=== PATIENT | female | born 1960 | race Caucasian/White ===

== ENCOUNTER 2017-08-09 12:56 | Emergency (ER) | payer BC ==
[~2017-08-09] VITALS: Ht 165.1 cm; Wt 74.0 kg
[~2017-08-09 12:56] MED LIST: ASCA500 PO; BUTA1CAP17; CALC-214 PO; HYDR-5688 PO; LEVO-14 PO; PHN/25 PO; SM350 PO; SPIR50TA2 PO; SUMA20SP; SUMA50TA15 PO; SUMA6KIT INJ; VALA500T39 PO; [UNRECOGNIZED DRUG - CODE] TOP
[2017-08-09 13:09] VITALS: TEMP 36.9; Ht 165.1 cm; Wt 74.0 kg
[2017-08-09] MEDS ORDERED: PROCHLORPERAZINE 5 MG/ML 2 ML VIAL IV STA (13:27)
[2017-08-09] MEDS ORDERED: SODIUM CHLORIDE 0.9% 1000ML 1,000 ML IV STA (13:27)
[2017-08-09] MEDS ORDERED: DiphenhydrAMINE HCL 50 MG/ML VIAL IV STA (13:27)
[2017-08-09] MEDS ORDERED: KETOROLAC TROMETHAMINE 30 MG/ML VIAL IV STA (13:27)
[2017-08-09] MEDS ORDERED: IMTIN5 (14:16)
[2017-08-09] MEDS ORDERED: METO50TA7 PO (14:17)
--- NOTE | 2017-08-09 14:24 | EMERGENCY ROOM VISIT NOTE ---
History Report prepared by Leidyibosmel: Mateo King Under the Supervision of: Dr. Akil Givens D.O. First contact with patient: 13:16 Chief Complaint: HEADACHE Stated Complaint: MIGRAINE, HEADACHE FOR 4 DAYS History of Present Illness The patient is a 56 year old female who presents to the Emergency Room with complaints of a waxing and waning headache beginning four days ago. She has a history of migraines and states that her current headache feels like a typical migraine. She states that her migraines do not usually last this long. The patient denies any recent cough, sore throat, or cold. She denies any recent trauma. Source of History: patient Onset: Four days ago Position: head Timing: waxes/wanes Associated Symptoms: No sorethroat, No cough Review of Systems See HPI for pertinent positives & negatives. A total of 10 systems reviewed and were otherwise negative. Past Medical & Surgical Medical Problems: (1) Atrial Fibrillation (2) Cervicalgia (3) Headache (4) Heart palpitations (5) Migraine (6) Status migrainosus Surgical Problems: (1) History of radiofrequency ablation procedure for cardiac arrhythmia Family History No pertinent family history stated. Social History Smoking Status: Never Smoker Drug Use: none Marital Status: Housing Status: lives with significant other Occupation Status: employed Current/Historical Medications Scheduled Estradiol & Norethindrone Acet (Combipatch), 1 PATCH TOP q4 days Metoprolol Succ (Toprol Xl) (Toprol-Xl), 50 MG PO DAILY Spironolactone (Aldactone), 25 MG PO DAILY Sumatriptan Succinate (Imitrex), 100 MG PO PRN Sumatriptan Succinate (Imitrex Nasal [place]), 1 SPRAY NA UD Valacyclovir Hcl (Valtrex), 500 MG PO prn Scheduled PRN Pfyshqzpux-Cveikmusgoajz-Lcyib (Fioricet), 1-2 CAP Q4H PRN for Headache Carisoprodol (Carisoprodol), 350 MG PO QPM PRN for SPASMS Hydrocodone/Acetaminophen 5MG/325MG ([place] 5MG/325MG), 1 TABLET PO DAILY PRN for Pain Promethazine HCl (Promethazine HCl), 25 MG PO DAILY PRN for Nausea Allergies Coded Allergies: Bacitracin (Unverified Allergy, Mild, 08/09/17) Erythromycin (Verified Allergy, Mild, SHORTNESS OF BREATH, 08/09/17) Macrolides (Unverified Allergy, Mild, 08/09/17) Polymyxin B (Unverified Allergy, Mild, 08/09/17) Uncoded Allergies: EMYCIN (Allergy, Unknown, 12/14/02) Physical Exam Vital Signs Date Time Temp Pulse Resp B/P (MAP) Pulse Ox O2 Delivery O2 Flow Rate FiO2 08/09/17 13:09 36.9 65 18 126/85 100 Room Air Physical Exam CONSTITUTIONAL/VITAL SIGNS: Reviewed / noted above. GENERAL: Non-toxic in appearance. INTEGUMENTARY: Warm, dry, and [place]. HEAD: Normocephalic. EYES: without scleral icterus or trauma. ENT/OROPHARYNX: clear and moist. LYMPHADENOPATHY/NECK: Is supple without lymphadenopathy or meningismus. RESPIRATORY: Lungs clear and equal. CARDIOVASCULAR: Regular rate and rhythm. GI/ABDOMEN: Soft and nontender. No organomegaly or pulsatile mass. No rebound or guarding. Normal bowel sounds. EXTREMITIES: Warm and well perfused. BACK: No CVA tenderness. NEUROLOGICAL: Intact without focal deficits. PSYCHIATRIC: normal affect. MUSCULOSKELETAL: Normally developed with good muscle tone. Medical Decision & Procedures Medications Administered Medications (Trade) Dose Ordered Sig/Leigh Route Start Time Stop Time Status Last Admin Dose Admin Ketorolac Tromethamine (Toradol Inj) 30 mg NOW STAT IV 08/09/17 13:27 08/09/17 13:30 DC 08/09/17 13:50 30 MG Sodium Chloride 1,000 ml @ 999 mls/hr Q1H1M STAT IV 08/09/17 13:27 08/09/17 14:27 08/09/17 13:49 999 MLS/HR Prochlorperazine Edisylate (Compazine Inj) 10 mg NOW STAT IV 08/09/17 13:27 08/09/17 13:30 DC 08/09/17 13:49 10 MG Diphenhydramine HCl (Benadryl Inj) 25 mg NOW STAT IV 08/09/17 13:27 08/09/17 13:30 DC 08/09/17 13:49 25 MG ED Course 1321: Previous medical records were reviewed. The patient was evaluated in room A11A. A complete history and physical examination was performed. 1327: Ordered Benadryl Inj 25 mg IV, Compazine Inj 10 mg IV, Sodium Chloride 1000 ml @ 999 mls/hr IV, Toradol Inj 30 mg IV. 1415: On reevaluation, the patient is resting comfortably. I discussed the results and findings with the patient. She verbalized agreement of the treatment plan. The patient was discharged home. Medical Decision Differential includes: Acute intracranial bleed, trauma, meningitis, encephalitis, increased intracranial pressure, mass or mass effect, facial or dental infection, temporal arteritis, CVA, TIA, acute hypertensive emergency, sinusitis, carbon monoxide exposure. This is a 56-year-old female who presents to the ED with a chief complaint of migraine headache. The patient states that she developed mid migraine on . It is on the left side and associated with some nausea. The patient states that similar previous migraines. The patient denies any trauma or recent illness. She denies any new symptoms. She was treated with IV fluids, IV Toradol, IV Benadryl and IV Compazine. She received this in the past that and it works well for her. She prefers to go home after the medication. She was starting to get better. She was felt to be stable for discharge. Medication Reconcilliation Current Medication List: was personally reviewed by me Blood Pressure Screening Patient's blood pressure: Normal blood pressure Blood pressure disposition: Did not require urgent referral Impression Primary Impression: Migraine Scribe Attestation The scribe's documentation has been prepared under my direction and personally reviewed by me in its entirety. I confirm that the note above accurately reflects all work, treatment, procedures, and medical decision making performed by me. Departure Information Dispostion Home / Self-Care Referrals Abiodun Rivera MD (PCP) Patient Instructions My [facility] Additional Instructions Follow-up with your doctor for further care and evaluation in 1-2 days if symptoms persist. Return to the emergency department for worsening or new symptoms or any concerns. You have been examined and treated today on an emergency basis only. This is not a substitute for, or an effort to provide, complete comprehensive medical care. It is impossible to recognize and treat all injuries or illnesses in a single emergency department visit. It is therefore important that you follow up closely with your doctor. Call as soon as possible for an appointment.
[2017-08-09 15:04] VITALS: BP 120/82; PULSE 66; O2SAT 100
== END 2017-08-09 15:05 | disposition home or self-care (01) ==
LOC: C.EDB 12:57 → C.EDA 15:05
DX: G43.909 Migraine, unspecified, not intractable, without status migrainosus (principal); Z79.899 Other long term (current) drug therapy; I48.91 Unspecified atrial fibrillation

== ENCOUNTER → 2017-10-11 | Outpatient (CLI) | payer BC ==
[~2017-10-11] MED LIST changes: -ASCA500 PO; -CALC-214 PO; +ESTR1DIS TOP; +IMTIN5; -LEVO-14 PO; +METO50TA7 PO; -SUMA20SP; -SUMA6KIT INJ; -[UNRECOGNIZED DRUG - CODE] TOP
--- NOTE | 2017-10-12 07:48 | MAMMOGRAPHY REPORT ---
BILATERAL DIGITAL SCREENING MAMMOGRAM TOMOSYNTHESIS WITH CAD: 10/11/2017 CLINICAL HISTORY: Routine screening. Patient has no complaints. TECHNIQUE: Breast tomosynthesis in addition to standard 2D mammography was performed. Current study was also evaluated with a Computer Aided Detection (CAD) system. COMPARISON: Comparison is made to exams dated: 10/09/2016 mammogram, 04/15/2015 mammogram, 10/22/2014 mammogram, 04/19/2014 aspiration, 04/16/2014 ultrasound, and 04/16/2014 mammogram - [facility]. BREAST COMPOSITION: There are scattered areas of fibroglandular density in both breasts. FINDINGS: The parenchymal pattern is unchanged. No developing mass, architectural distortion or clus ter of suspicious microcalcifications is seen in either breast. IMPRESSION: ACR BI-RADS CATEGORY 2: BENIGN There is no mammographic evidence of malignancy. A 1 year screening mammogram is recommended. The pa tient will receive written notification of the results. Approximately 10% of breast cancers are not detected with mammography. A negative mammographic report should not delay biopsy if a clinically suggestive mass is present. Tianna Coley M.D. ay/:10/11/2017 13:31:54 House Painting Instructor: Siena HOOD(Natanael)(M), [facility] letter sent: Normal 1/2 BI-RADS Code: ACR BI-RADS Category 2: Benign
== END | disposition home or self-care (01) ==
LOC: C.MAMM 12:40
PROVIDERS: ATTEND Internal Medicine
DX: Z12.31 Encounter for screening mammogram for malignant neoplasm of breast (principal)

== ENCOUNTER → 2017-11-12 | Outpatient (CLI) | payer BC, OTHER | END | disposition home or self-care (01) | LOC: C.PATHSPEC 11:13 | PROVIDERS: ATTEND Obstetrics & Gynecology | DX: N89.1 Moderate vaginal dysplasia (principal); N84.1 Polyp of cervix uteri ==

== ENCOUNTER → 2017-11-12 | Outpatient (CLI) | payer BC, OTHER | END | disposition home or self-care (01) | LOC: C.PAPS 11:42 | PROVIDERS: ATTEND Obstetrics & Gynecology | DX: Z01.419 Encounter for gynecological examination (general) (routine) without abnormal findings (principal) ==

== ENCOUNTER 2022-04-14 01:06 | Inpatient (IN) ==
[2022-04-14] MEDS ORDERED: ALBUT/IPRATROP 3MG/0.5MG NEB 3 ML VIAL NEB STA ×2 (01:37→04:16)
[2022-04-14] MEDS ORDERED: ACETAMINOPHEN 500 MG TAB PO STA (01:37)
[2022-04-14] MEDS ORDERED: dexAMETHasone**PF** 10 MG/ML VIAL IV ONE (01:37)
[2022-04-14 02:27] LABS: Basophils # (auto) 0.03 K/uL (0-0.2); Basophils % (auto) 0.5 %; Eosinophils # (auto) 0.47 K/uL (0-0.5); Eosinophils % (auto) 7.6 %; Hematocrit (blood only) 38.6 % (37-47); Immature Granulocytes # (auto) 0.02 K/uL (0.00-0.02); Immature Granulocytes % (auto) 0.3 %; Lymphocytes # (auto) 1.73 K/uL (1.2-3.4); Lymphocytes % (auto) 27.8 %; Mean Corpuscular Hemoglobin 32.9 pg (25-34); Mean Corpuscular Hgb Conc 33.7 g/dL (32-36); Mean Corpuscular Volume 97.7 fL (80-100); Mean Platelet Volume 8.7 fL (7.4-10.4); Monocytes # (auto) 0.48 K/uL (0.11-0.59); Monocytes % (auto) 7.7 %; Neutrophils # (auto) 3.49 K/uL (1.4-6.5); Neutrophils % (auto) 56.1 %; Platelet Count 238 K/uL (130-400); RDW Coefficient of Variation 13.4 % (11.5-14.5); Red Blood Count 3.95 M/uL (4.2-5.4); White Blood Count 6.22 K/uL (4.8-10.8)
[2022-04-14 02:32] LABS: D Dimer 250 ug/L FEU (0-500); Prothrombin Time 10.3 Seconds (9.0-12.0)
[2022-04-14 02:45] LABS: Albumin Globulin Ratio 1.8 (0.9-2); BUN Creatinine Ratio 9.9 (10-20); Bilirubin,Total 0.3 mg/dl (0.2-1.0); Calcium 8.6 mg/dl (8.5-10.1); Creatinine Clr Calc Pharmacy 66.7 ml/min; Est GFR (African American) 78.4 ml/min; Est GFR (Non-African American) 67.6 ml/min; Globulin 2.2 gm/dl (2.5-4.0); Potassium 3.9 mmol/L (3.5-5.1); Total Protein 6.2 gm/dl (6.0-8.3)
[2022-04-14 02:46] LABS: Troponin I High Sensitivity 3.9 pg/ml (0-14)
[2022-04-14] MEDS ORDERED: BENZONATATE 100 MG CAPSULE PO ONE (04:16)
--- NOTE | 2022-04-14 07:06 | XRay Report ---
XR chest 1V portable CLINICAL HISTORY: SOB TECHNIQUE: Single frontal radiograph of the chest was obtained. Comparison: Comparison is made to chest radiograph 12/21/2014 FINDINGS: No lines and tubes are seen. The cardiomediastinal silhouette is normal. A tiny focus of airspace [place] in the right lower lobe. No evidence of pleural effusion or pneumothorax. IMPRESSION: Tiny focus of airspace opacities in the right lower lobe may represent aspiration, atelectasis, and/o r pneumonia. ACT 112: Negative or not required by law. Electronically signed by: Hermilo Knight M.D. 04/14/2022 7:04 AM
[2022-04-14 07:28] LABS: Influenza A virus by PCR Negative (Neg); Influenza B virus by PCR Negative (Neg); RSV by PCR Negative (Neg)
[2022-04-14 07:30] LABS: SARS CoV2 RNA(COVID-19) InHosp POSITIVE (Negative)
--- NOTE | 2022-04-14 10:03 | Emergency Department Note ---
Impression & Plan COVID-19, Hypoxia, Shortness of breath ED Provider Note CHIEF COMPLAINT: Respiratory difficulties HISTORY OF PRESENT ILLNESS: Kathleen Little is a 61 year old female with history of asthma, paroxysmal a-fib and SVT s/p ablation, migraines among others listed below to the Emergency Department for evaluation of increased respiratory difficulties which have become progressively worse since earlier yesterday afternoon. The patient states that she initially developed a sore throat 5 days prior and then took a home test for COVID19 on 04/11/2022 which was positive. Since then, she states that she has had a cough with chest tightness and wheezing which then became much worse yesterday afternoon. She did attempt to use her albuterol and Advair inhalers with little improvement of her symptoms. She did take a Tessalon Perle last evening which helped her cough a little bit, however, as she has had increased shortness of breath, she presents to the ED for further evaluation this evening. The patient describes her shortness of breath to feel as if she is not getting enough air. She denies having dyspnea. She otherwise denies having abdominal pain, nausea, vomiting, diarrhea or uri nary symptoms. The patient was recently around her family who tested positive for COVID19 as well. She is fully vaccinated and boosted for COVID19. REVIEW OF SYSTEMS: 10 systems were reviewed and were negative unless otherwise stated in HPI as above PHYSICAL EXAM: VITALS: Vitals are noted on the nurse's note and reviewed by myself. Intermittently hypoxic at 88% on room air, additional vital signs stable General: Resting in bed, no acute distress HEENT: Normocephalic, atraumatic, PERRL, EOMI, TMs clear bilaterally, no nasal discharge, mucous membranes moist, erythema to the posterior oropharynx, no edema or exudates, airway remains patent Neck: Supple, mild bilateral lymphadenopathy, no significant tenderness to palpation, ROM intact without pain Resp: Good inspiratory effort on room air, lung sounds clear bilaterally without wheezing, rales or rhonchi. Mild tenderness to palpation of the anterior chest wall CV: Regular rate and rhythm, normal S1-S2, peripheral pulses palpated Back: No CVA or paraspinal muscular tenderness Abd: Soft, nondistended, nontender MSK: Moving all extremities without apparent pain or difficulty Integumentary: Warm, dry, no appreciable rash Neuro: Awake, alert and oriented x 3, interacting and answering questions appropriately Differential diagnosis includes viral syndrome, bacterial infection, otitis, pharyngitis, COVID-19, pneumonia, influenza, bronchitis, meningitis, allergic reaction, seasonal allergies, as well as others were entertained EMERGENCY DEPARTMENT COURSE: Physical exam and history were performed. Nursing triage notes, EMR, and medication list were personally reviewed. Patient appears to have increased respiratory difficulties which have become progressively worse since earlier yesterday afternoon. She did take a home test for COVID19 on 04/11/2022 which was positive. Additional history as described above. Continuous nurse monitoring: Order was placed for continuous nurse monitoring. Patient was placed on the nurse monitoring. Patient was noted to be in normal sinus rhythm at an initial rate of 76 bpm. EKG was obtained and showed normal sinus rhythm at 73 bpm. Nonspecific T wave abnormality, does not appear to be consistent with acute ischemic change. No ectopy. When compared to study from 12/21/2014, nonspecific T wave abnormality no longer evident in anterolateral leads. The patient was offered medications. IV access was established. She was given dexamethasone 10 mg IV, acetaminophen 1000 mg p.o., DuoNeb breathing treatments x2 and Tessalon Perles 200 mg throughout her emergency department course. Labs are obtained and reviewed by myself as below. Of note, no concern for leukocytosis with a WBC of 6.22. No concern for anemia with hemoglobin 13.0. Coagulation studies WNL. D-dimer not elevated at 250. Electrolytes WNL. Renal indices stable. LFTs nondiagnostic. COVID19 test was positive. Chest x-ray was obtained and reviewed by radiologist and myself as below. This did show a tiny focus of airspace opacities in the right lower lobe, likely consistent with COVID-pneumonia. The patient was reevaluated several times throughout her emergency department course. I did discuss the results of the above findings with her at bedside. She was not feeling significantly improved after receiving the medications as above and her oxygen saturations continued to dip down to 88% on room air, though this did intermittently improve to about 93%. She was placed on 2 L supplemental O2 via NC. For these reasons, I do feel that she would benefit from continued management in the hospital. The patient did agree with this. I did contact Dr. Haji of the [facility] hospitalist group who agreed to evaluate the patient for further management. The patient verbalized her understanding and agreement with the treatment plan as above. The chart was completed utilizing [employer] Speech Voice Recognition Software. Grammatical errors, random word insertions, pronoun errors, and incomplete sentences are an occasional consequence of this system due to software limitations, ambient noise, and hardware issues. Any formal questions or concerns about the content, text, or information contained within the body of this dictation should be directly addressed to the provider for clarification. Past Med/Surg History Medical History Atrial complex, premature Chronic migraine with aura Microscopic colitis Migraine Palpitations Paroxysmal A-fib PSVT (paroxysmal supraventricular tachycardia) Status migrainosus Surgical History History of cardiac radiofrequency ablation History of inguinal hernia repair History of pilonidal cyst resection History of tonsillectomy and adenoidectomy No pertinent past surgical history Family History (Updated 09/05/20 @ 16:05 by Jennifer Lopez) Aunt Breast cancer Paternal Family/Other Breast cancer great aunt Mother Dyslipidemia Denies family history of Ovarian cancer Colorectal cancer Social History Smoking Status: Never smoker Preferred Language: Tuvaluan Feels Safe at Home: Yes Allergies Allergies Allergy/AdvReac Type Severity Reaction Status Date / Time erythromycin base Allergy Severe SHORTNESS Verified 04/14/22 01:52 OF BREATH [id number] Allergy Severe SYSTEMIC Verified 04/14/22 01:52 [From Raf] HIVES Macrolide Antibiotics Allergy Severe SHORTNESS Verified 04/14/22 01:52 OF BREATH bacitracin Allergy Intermediate SKIN Verified 04/14/22 01:52 IRRITATION polymyxin B Allergy Intermediate SKIN Verified 04/14/22 01:52 IRRITATION ragweed pollen Allergy Intermediate NASAL Verified 04/14/22 01:52 CONGESTION Home Meds Home Medications Medication Instructions Recorded Confirmed metoclopramide HCl 10 mg tablet 10 mg PO Q12H PRN 02/12/21 04/14/22 mexiletine 250 mg capsule 250 mg PO BID 02/12/21 04/14/22 nabumetone 500 mg tablet 500 mg PO BID PRN 02/12/21 04/14/22 metoprolol succinate 25 mg 25 mg PO DAILY tab 03/03/22 04/14/22 tablet,extended release 24 hr sertraline 100 mg tablet 100 mg PO DAILY tab 03/03/22 04/14/22 Previous Rx's Medication Instructions Recorded sumatriptan 20 mg/actuation nasal 20 mg INTRANASAL Q2H PRN #12 ea 05/20/20 spray eletriptan 40 mg tablet 40 mg PO DIRECTED PRN 90 Days 12/16/20 #27 tab carisoprodol 350 mg tablet 350 - 700 mg PO DAILY PRN 90 Days 01/09/22 #180 tab estradiol 0.0375 mg/24 hr 1 patch TRANSDERMAL 2XWK #24 ea 02/26/22 semiweekly transdermal patch (Vivelle-Dot) progesterone micronized 100 mg 100 mg PO DAILY 90 Days #90 cap 02/26/22 capsule (Prometrium) Results & Data (ED) Vital Signs Vital Signs - 24 hr 04/14/22 01:10 04/14/22 01:21 04/14/22 01:32 Temperature 36.8 C Temperature Source Temporal Artery Scan Pulse Rate 76 74 Pulse Rate [Apical] Pulse Rate from SpO2 Sensor Pulse Rhythm [Apical] Respiratory Rate 18 15 Respiratory Effort / Characteristics Non-Labored Short of Breath SOB on Exertion Respiratory Depth Normal Respiratory Pattern Blood Pressure 136/86 Blood Pressure [Right Arm] Blood Pressure Mean 102 Blood Pressure Mean [Right Arm] Pulse Oximetry 98 97 97 Oxygen Delivery Method Room Air Room Air Room Air Sepsis Recent Fever Within 48 Hours No Sepsis New/Unexplained Change in Mental Status No Sepsis Action Taken by Nursing No Action Required Oxygen Flow Rate - Titration Pulse Oximetry Post Tiitration 04/14/22 01:40 04/14/22 01:50 04/14/22 02:00 Temperature Temperature Source Pulse Rate 75 75 76 Pulse Rate [Apical] Pulse Rate from SpO2 Sensor Pulse Rhythm [Apical] Respiratory Rate 12 24 17 Respiratory Effort / Characteristics Respiratory Depth Respiratory Pattern Blood Pressure Blood Pressure [Right Arm] Blood Pressure Mean Blood Pressure Mean [Right Arm] Pulse Oximetry 94 94 94 Oxygen Delivery Method Room Air Room Air Room Air Sepsis Recent Fever Within 48 Hours Sepsis New/Unexplained Change in Mental Status Sepsis Action Taken by Nursing Oxygen Flow Rate - Titration Pulse Oximetry Post Tiitration 04/14/22 02:10 04/14/22 02:11 04/14/22 02:19 Temperature Temperature Source Pulse Rate 74 79 Pulse Rate [Apical] Pulse Rate from SpO2 Sensor Pulse Rhythm [Apical] Respiratory Rate 18 16 Respiratory Effort / Characteristics Non-Labored Respiratory Depth Normal Respiratory Pattern Regular Blood Pressure 137/78 Blood Pressure [Right Arm] Blood Pressure Mean 97 Blood Pressure Mean [Right Arm] Pulse Oximetry 97 98 Oxygen Delivery Method Room Air Room Air Sepsis Recent Fever Within 48 Hours Sepsis New/Unexplained Change in Mental Status Sepsis Action Taken by Nursing Oxygen Flow Rate - Titration Pulse Oximetry Post Tiitration 04/14/22 02:20 04/14/22 02:30 04/14/22 03:00 Temperature Temperature Source Pulse Rate 77 78 76 Pulse Rate [Apical] Pulse Rate from SpO2 Sensor 79 76 Pulse Rhythm [Apical] Respiratory Rate 17 17 20 Respiratory Effort / Characteristics Respiratory Depth Respiratory Pattern Blood Pressure 134/73 124/82 Blood Pressure [Right Arm] Blood Pressure Mean 93 96 Blood Pressure Mean [Right Arm] Pulse Oximetry 100 97 95 Oxygen Delivery Method Room Air Sepsis Recent Fever Within 48 Hours Sepsis New/Unexplained Change in Mental Status Sepsis Action Taken by Nursing Oxygen Flow Rate - Titration Pulse Oximetry Post Tiitration 04/14/22 03:30 04/14/22 03:54 04/14/22 04:00 Temperature Temperature Source Pulse Rate 76 74 Pulse Rate [Apical] 82 Pulse Rate from SpO2 Sensor 77 74 Pulse Rhythm [Apical] Respiratory Rate 19 18 15 Respiratory Effort / Characteristics Non-Labored Respiratory Depth Normal Respiratory Pattern Regular Blood Pressure 123/66 145/73 H Blood Pressure [Right Arm] 123/66 Blood Pressure Mean 85 97 Blood Pressure Mean [Right Arm] 85 Pulse Oximetry 93 93 94 Oxygen Delivery Method Room Air Sepsis Recent Fever Within 48 Hours Sepsis New/Unexplained Change in Mental Status Sepsis Action Taken by Nursing Oxygen Flow Rate - Titration Pulse Oximetry Post Tiitration 04/14/22 04:58 04/14/22 05:00 04/14/22 05:30 Temperature Temperature Source Pulse Rate 84 Pulse Rate [Apical] 85 Pulse Rate from SpO2 Sensor 84 Pulse Rhythm [Apical] Respiratory Rate 22 18 Respiratory Effort / Characteristics Respiratory Depth Respiratory Pattern Blood Pressure Blood Pressure [Right Arm] 132/70 Blood Pressure Mean Blood Pressure Mean [Right Arm] 90 Pulse Oximetry 96 92 88 L Oxygen Delivery Method Room Air Room Air Sepsis Recent Fever Within 48 Hours Sepsis New/Unexplained Change in Mental Status Sepsis Action Taken by Nursing Oxygen Flow Rate - Titration Pulse Oximetry Post Tiitration 94 04/14/22 06:00 04/14/22 06:11 04/14/22 06:12 Temperature Temperature Source Pulse Rate 81 Pulse Rate [Apical] 81 Pulse Rate from SpO2 Sensor 81 Pulse Rhythm [Apical] Respiratory Rate 19 18 Respiratory Effort / Characteristics Respiratory Depth Respiratory Pattern Blood Pressure Blood Pressure [Right Arm] 131/74 Blood Pressure Mean Blood Pressure Mean [Right Arm] 93 Pulse Oximetry 90 90 Oxygen Delivery Method Room Air Nasal Cannula Sepsis Recent Fever Within 48 Hours Sepsis New/Unexplained Change in Mental Status Sepsis Action Taken by Nursing Oxygen Flow Rate - Titration 2 Pulse Oximetry Post Tiitration 95 04/14/22 09:49 Temperature Temperature Source Pulse Rate Pulse Rate [Apical] 73 Pulse Rate from SpO2 Sensor Pulse Rhythm [Apical] Regular Respiratory Rate 20 Respiratory Effort / Characteristics Respiratory Depth Normal Respiratory Pattern Blood Pressure Blood Pressure [Right Arm] 115/53 L Blood Pressure Mean Blood Pressure Mean [Right Arm] 73 Pulse Oximetry 94 Oxygen Delivery Method Room Air Sepsis Recent Fever Within 48 Hours Sepsis New/Unexplained Change in Mental Status Sepsis Action Taken by Nursing Oxygen Flow Rate - Titration Pulse Oximetry Post Tiitration Laboratory Data Result diagrams: 04/14/22 02:06 04/14/22 02:06 Lab Results 04/14/22 04/14/22 04/14/22 Range/Units 02:06 02:06 02:06 WBC 6.22 (4.8-10.8) K/uL RBC 3.95 L (4.2-5.4) M/uL Hgb 13.0 (12.0-16.0) g/dL Hct 38.6 (37-47) % MCV 97.7 (80-100) fL MCH 32.9 (25-34) pg MCHC 33.7 (32-36) g/dL RDW Std Deviation 48.0 H (36.4-46.3) fL RDW Coeff of Babita 13.4 (11.5-14.5) % Plt Count 238 (130-400) K/uL MPV 8.7 (7.4-10.4) fL Immature Gran % (Auto) 0.3 % Neut % (Auto) 56.1 % Lymph % (Auto) 27.8 % Amite % (Auto) 7.7 % Eos % (Auto) 7.6 % Baso % (Auto) 0.5 % Neut # (Auto) 3.49 (1.4-6.5) K/uL Lymph # (Auto) 1.73 (1.2-3.4) K/uL [place] # (Auto) 0.48 (0.11-0.59) K/uL Eos # (Auto) 0.47 (0-0.5) K/uL Baso # (Auto) 0.03 (0-0.2) K/uL Immature Gran # (Auto) 0.02 (0.00-0.02) K/uL PT 10.3 (9.0-12.0) Seconds INR 1.0 (0.9-1.1) APTT 28.0 (21.0-31.0) Seconds PTT Ratio 1.0 D-Dimer 250 (0-500) ug/L FEU Sodium 136 (136-145) mmol/L Potassium 3.9 (3.5-5.1) mmol/L Chloride 104 (98-107) mmol/L Carbon Dioxide 27 (21-32) mmol/L Anion Gap 5 (3-11) BUN 9 (6-23) mg/dl Creatinine 0.91 (0.6-1.2) mg/dl Est Cr Clr Drug Dosing 66.7 ml/min Est GFR ( Amer) 78.4 ml/min Est GFR (Non-Af Amer) 67.6 ml/min BUN/Creatinine Ratio 9.9 L (10-20) Glucose 102 H (70-99(Fasting)) mg/dl Calcium 8.6 (8.5-10.1) mg/dl Total Bilirubin 0.3 (0.2-1.0) mg/dl AST 19 (13-39) U/L ALT 16 (7-52) U/L Alkaline Phosphatase 57 (34-104) U/L Troponin I High Sens 3.9 (0-14) pg/ml Total Protein 6.2 (6.0-8.3) gm/dl Albumin 4.0 (3.4-5.0) gm/dl Globulin 2.2 L (2.5-4.0) gm/dl Albumin/Globulin Ratio 1.8 (0.9-2) SARS-CoV-2 (PCR) (Negative) Influenza Type A (PCR) (Neg) Influenza Type B (PCR) (Neg) RSV (RT-PCR) (Neg) 04/14/22 Range/Units 06:12 WBC (4.8-10.8) K/uL RBC (4.2-5.4) M/uL Hgb (12.0-16.0) g/dL Hct (37-47) % MCV (80-100) fL MCH (25-34) pg MCHC (32-36) g/dL RDW Std Deviation (36.4-46.3) fL RDW Coeff of Babita (11.5-14.5) % Plt Count (130-400) K/uL MPV (7.4-10.4) fL Immature Gran % (Auto) % Neut % (Auto) % Lymph % (Auto) % Amite % (Auto) % Eos % (Auto) % Baso % (Auto) % Neut # (Auto) (1.4-6.5) K/uL Lymph # (Auto) (1.2-3.4) K/uL Amite # (Auto) (0.11-0.59) K/uL Eos # (Auto) (0-0.5) K/uL Baso # (Auto) (0-0.2) K/uL Immature Gran # (Auto) (0.00-0.02) K/uL PT (9.0-12.0) Seconds INR (0.9-1.1) APTT (21.0-31.0) Seconds PTT Ratio D-Dimer (0-500) ug/L FEU Sodium (136-145) mmol/L Potassium (3.5-5.1) mmol/L Chloride (98-107) mmol/L Carbon Dioxide (21-32) mmol/L Anion Gap (3-11) BUN (6-23) mg/dl Creatinine (0.6-1.2) mg/dl Est Cr Clr Drug Dosing ml/min Est GFR ( Amer) ml/min Est GFR (Non-Af Amer) ml/min BUN/Creatinine Ratio (10-20) Glucose (70-99(Fasting)) mg/dl Calcium (8.5-10.1) mg/dl Total Bilirubin (0.2-1.0) mg/dl AST (13-39) U/L ALT (7-52) U/L Alkaline Phosphatase (34-104) U/L Troponin I High Sens (0-14) pg/ml Total Protein (6.0-8.3) gm/dl Albumin (3.4-5.0) gm/dl Globulin (2.5-4.0) gm/dl Albumin/Globulin Ratio (0.9-2) SARS-CoV-2 (PCR) POSITIVE A* (Negative) Influenza Type A (PCR) Negative (Neg) Influenza Type B (PCR) Negative (Neg) RSV (RT-PCR) Negative (Neg) Administered Medications Discontinued Medications Acetaminophen (Acetaminophen 500 Mg Tab) 1,000 mg PO NOW STA Stop: 04/14/22 01:38 Last Admin: 04/14/22 02:06 Dose: 1,000 mg Documented by: [id number] Albuterol (Albut/Ipratrop 3mg/0.5mg Neb 3 Ml Vial) 3 ml NEB NOW STA; Protocol Stop: 04/14/22 01:38 Last Admin: 04/14/22 02:06 Dose: 3 ml Documented by: [id number] Albuterol (Albut/Ipratrop 3mg/0.5mg Neb 3 Ml Vial) 3 ml NEB NOW STA; Protocol Stop: 04/14/22 04:17 Last Admin: 04/14/22 04:23 Dose: 3 ml Documented by: [id number] Benzonatate (Benzonatate 100 Mg Capsule) 200 mg PO NOW ONE Stop: 04/14/22 04:17 Last Admin: 04/14/22 04:23 Dose: 200 mg Documented by: [id number] Dexamethasone Sodium Phosphate (DexamethasonePf 10 Mg/Ml Vial) 10 mg IV NOW ONE Stop: 04/14/22 01:38 Last Admin: 04/14/22 02:06 Dose: 10 mg Documented by: [id number] Imaging Data Radiologist's Impression: Chest X-Ray 04/14/22 02:50 XR chest 1V portable CLINICAL HISTORY: SOB TECHNIQUE: Single frontal radiograph of the chest was obtained. Comparison: Comparison is made to chest radiograph 12/21/2014 FINDINGS: No lines and tubes are seen. The cardiomediastinal silhouette is normal. A tiny focus of airspace [place] in the right lower lobe. No evidence of pleural effusion or pneumothorax. IMPRESSION: Tiny focus of airspace opacities in the right lower lobe may represent aspiration, atelectasis, and/or pneumonia. ACT 112: Negative or not required by law. Electronically signed by: Hermilo Knight M.D. 04/14/2022 7:04 AM Discharge Plan Visit Data Chief Complaint: Respiratory Problems Stated Complaint: COVID+-COUGH,CHEST TIGHTNESS,WHEEZING ED Provider: Chelita Bell ED Midlevel Provider: Kelley Kwan Patient Disposition: Admitted As Inpatient Prescriptions Prescriptions: No Action sumatriptan 20 mg/actuation spray,non-aerosol 20 mg intranasal Q2H PRN (Reason: migraine headache) Qty: 12 RF: 3 eletriptan 40 mg tablet 40 mg PO DIRECTED PRN (Reason: migraine headache) 90 Days Qty: 27 RF: 1 carisoprodol 350 mg tablet 350 - 700 mg PO DAILY PRN (Reason: muscle pain) 90 Days Qty: 180 RF: 0 estradiol [Vivelle-Dot] 0.0375 mg/24 hr patch semiweekly 1 patch transdermal 2XWK Qty: 24 RF: 3 progesterone micronized [Prometrium] 100 mg capsule 100 mg PO DAILY 90 Days Qty: 90 RF: 3 sertraline 100 mg tablet 100 mg PO DAILY RF: 0 metoprolol succinate 25 mg tablet extended release 24 hr 25 mg PO DAILY RF: 0 mexiletine 250 mg capsule 250 mg PO BID RF: 0 nabumetone 500 mg tablet 500 mg PO BID PRN (Reason: Pain) RF: 0 metoclopramide HCl 10 mg tablet 10 mg PO Q12H PRN (Reason: Migraine Headache) RF: 0
--- NOTE | 2022-04-14 10:58 | History and Physical Report ---
DATE OF ADMISSION: 04/14/2022. CHIEF COMPLAINT: Shortness of breath, COVID. HISTORY OF PRESENT ILLNESS: A 61-year-old female with past medical history significant for mixed hyperlipidemia, history of paroxysmal supraventricular tachycardia, microscopic colitis, irritable bowel syndrome, microscopic hematuria, degenerative disk disease, history of retinal edema, history of migraines,history of asthma history of atrial fibrillation, status post pulmonary vein isolation as well as radiofrequency ablation of an atrial tachycardia, presents with shortness of breath. The patient has history of asthma, she gets on and off asthma, ones a while uses albuterol. 2-3 weeks ago, she was started on Advair and albuterol p.r.n. for asthma. Since last she is having COVID symptoms with headache, cough, and it got progressively worse. Yesterday, she was feeling chest tightness and feeling more short of breath and cough was not stopping, so she came to the ER. She has 88% oxygen on room air, with nasal cannula she is saturating high 90s. After the oxygen supplementation her chest tightness resolved. She is resting comfortably currently. She never had a fever. Having headaches, but they are different from her migraine headaches. Some pressure in the ears. No runny nose, sore throat from coughing. No nausea. Appetite is down. No loss of sense of smell or taste. No abdominal pain, no diarrhea or constipation. Normal bladder movements. No rash. ALLERGIES: ERYTHROMYCIN BASE, MACROLIDE ANTIBIOTICS, BACITRACIN, POLYMYXIN B, RAGWEED POLLEN, FREMANEZUMAB. PAST MEDICAL HISTORY: As mentioned above. PAST SURGICAL HISTORY: Ablation of the heart, colonoscopy, cystoscopy, EGDs, tonsillectomy, inguinal hernia repair. MEDICATIONS: Carisoprodol 350 -700mg p.o. daily p.r.n., eletriptan 40 mg p.r.n., estradiol transdermal patch twice weekly, Reglan 10 mg p.o. b.i.d. p.r.n., metoprolol succinate 25 mg p.o. daily, mexiletine 250 mg p.o. b.i.d., nabumetone 300 mg p.o. b.i.d. p.r.n., progesterone micronized 100 mg p.o. daily, sertraline 100 mg p.o. daily, sumatriptan p.r.n. FAMILY HISTORY: Significant for paternal grandfather had allergies. Mother has allergies, heart disorder, Alzheimer disease, kidney disease; father had stroke, heart disorder; daughter has asthma. Paternal grandfather, asthma SOCIAL HISTORY: , no smoking, alcohol one drink per day. No drug use. REVIEW OF SYSTEMS: As per HPI. Rest of review of systems is negative. PHYSICAL EXAMINATION: GENERAL: The patient is of moderate build, not in acute distress. VITAL SIGNS: Temperature 36.8, pulse 81, respiratory rate 18, blood pressure 131/74, oxygen 88% on room air, currently 90% on oxygen. HEENT: No pallor, no icterus. Pupils equal, round and reactive to light. Oral mucosa moist. NECK: No JVD. No neck masses. CARDIOVASCULAR: S1 and S2 heard. Regular rate and rhythm. No murmur, no gallop. RESPIRATORY SYSTEM: Normal AP diameter. No accessory muscle use. No wheezing. Diminished breath sounds. No crackles. ABDOMEN: Soft. Bowel sounds are present, nontender, no distention. CENTRAL NERVOUS SYSTEM: Cranial nerves II-XII grossly intact, nonfocal. EXTREMITIES: No edema, no erythema. LABORATORY: WBC 6.2, hemoglobin 13, hematocrit 38.6, platelets 238. PT 10.3, INR 1, APTT 28. D-dimer 250. Sodium 136, potassium 3.9, chloride 104, bicarbonate 27, BUN 9, creatinine 0.9, serum glucose 102, calcium 8.6, total bilirubin 0.3, AST 19, ALT 16, alkaline phosphatase 57. Troponin I high sensitivity 3.9. SARS-CoV-2 PCR pending. IMAGING: Chest x-ray, tiny focus of airspace opacity in the right lower lobe, possible aspiration vs atelectasis or pneumonia. EKG: Normal sinus rhythm at a rate of 73, nonspecific ST abnormalities. ASSESSMENT AND PLAN: This is a 61-year-old female presents with shortness of breath and chest tightness with history of asthma and COVID. 1. Asthma exacerbation, secondary to COVID, requiring oxygen, meets criteria for remdesivir which will be started and dexamethasone, nebs around the clock and p.r.n., Advair Diskus and albuterol p.r.n. and closely monitor in the [facility]. 2. History of migraine. Continue her home medications. 3. History of paroxysmal supraventricular tachycardia. Continue metoprolol. 4. Deep venous thrombosis prophylaxis: Lovenox. DISPOSITION: Closely monitor in med tele. PT/OT prior to discharge. Social Service to help with discharge planning. Job ID: [id number] GERI
[2022-04-14] MEDS ORDERED: NABUMETONE 500 MG TABLET PO PRN (12:32)
[2022-04-14] MEDS ORDERED: LEVALBUTEROL HCL 1.25 MG/3 ML NEB NEB PRN (12:32)
[2022-04-14] MEDS ORDERED: ONDANSETRON INJ 2 MG/ML 2 ML VIAL IV PRN (12:32)
[2022-04-14] MEDS ORDERED: POLYETHYLENE (MIRALAX) 17 GM PACK PO PRN (12:32)
[2022-04-14] MEDS ORDERED: ALBUTEROL HFA 8 GM INHALER INH PRN (12:32)
[2022-04-14] MEDS ORDERED: CARISOPRODOL 350 MG TABLET PO PRN (12:32)
[2022-04-14] MEDS ORDERED: SODIUM CHLORIDE 0.9% 1000ML 1,000 ML IV SCH (12:32)
[2022-04-14] MEDS ORDERED: NITROGLYCERIN SL 0.4 MG/TAB TAB SL PRN (12:32)
[2022-04-14] MEDS: IPRATROPIUM BROMIDE NEB SOLN 0.02% 2.5 ML VIAL INH SCH ×2 (12:56→19:15)
[2022-04-14] MEDS: LEVALBUTEROL 1.25MG/0.5ML NEB INH SCH ×2 (12:56→19:15)
[2022-04-14] MEDS ORDERED: XOPENEX/ATROVENT 1.25mg/0.5MG NEB COMBO NEB SCH (13:00)
[2022-04-14] MEDS ORDERED: REMDESIVIR 200 MG in SODIUM CHLORIDE 0.9% 210 ML IV ONE (13:00)
[2022-04-14] MEDS: METOPROLOL SUCC 25MG EXT REL TAB PO SCH (13:15)
[2022-04-14] MEDS: SERTRALINE HCL 100 MG TABLET PO SCH (13:16)
[2022-04-14] MEDS: dexAMETHasone 6 MG in SYRINGE 0 ML IV SCH (13:19)
[2022-04-14] MEDS: ENOXAPARIN INJ 40 MG/0.4 ML SYR SQ SCH (13:21)
[2022-04-14] MEDS: FLUTICASONE/VILANTEROL 200/25MCG 14 PUFFS/INHALER INH SCH (13:23)
--- NOTE | 2022-04-14 19:05 | Electrocardiogram Report ---
Test Reason : Blood Pressure : / mmHG Vent. Rate : 073 BPM Atrial Rate : 073 BPM P-R Int : 160 ms QRS Dur : 078 ms QT Int : 392 ms P-R-T Axes : 061 005 013 degrees QTc Int : 431 ms Normal sinus rhythm Low voltage QRS Nonspecific ST abnormality Abnormal ECG When compared with ECG of 21-DEC-2014 13:20, Nonspecific T wave abnormality no longer evident in Anterolateral leads Confirmed by Ameya Torrez ([id number]) on 04/14/2022 7:05:19 PM Referred By: REFERRED SELF Confirmed By:Sanford Torrez
[2022-04-14] MEDS: BENZONATATE 100 MG CAPSULE PO PRN (19:33)
[2022-04-14] MEDS: diphenhydrAMINE Capsule 25 MG CAP PO SCH (21:09)
[2022-04-14] MEDS: ACETAMINOPHEN 325 MG TAB PO PRN (21:09)
[2022-04-14] MEDS: MELATONIN 3 MG TAB PO SCH (21:09)
[2022-04-14] MEDS: guaiFENesin/DEXTROM SYRUP 100MG/10MG 5ML UDC PO PRN (22:29)
[2022-04-15] MEDS: IPRATROPIUM BROMIDE NEB SOLN 0.02% 2.5 ML VIAL INH SCH ×4 (01:33→19:30)
[2022-04-15] MEDS: LEVALBUTEROL 1.25MG/0.5ML NEB INH SCH ×4 (01:33→19:30)
[2022-04-15] MEDS: guaiFENesin/DEXTROM SYRUP 100MG/10MG 5ML UDC PO PRN ×3 (06:11→20:56)
[2022-04-15 06:42] LABS: Basophils # (auto) 0.01 K/uL (0-0.2); Basophils % (auto) 0.1 %; Eosinophils # (auto) 0.01 K/uL (0-0.5); Eosinophils % (auto) 0.1 %; Hematocrit (blood only) 39.2 % (37-47); Hemoglobin 12.8 g/dL (12.0-16.0); Immature Granulocytes # (auto) 0.02 K/uL (0.00-0.02); Immature Granulocytes % (auto) 0.2 %; Lymphocytes # (auto) 1.91 K/uL (1.2-3.4); Lymphocytes % (auto) 21.9 %; Mean Corpuscular Hemoglobin 31.8 pg (25-34); Mean Corpuscular Hgb Conc 32.7 g/dL (32-36); Mean Corpuscular Volume 97.5 fL (80-100); Mean Platelet Volume 8.7 fL (7.4-10.4); Monocytes # (auto) 0.69 K/uL (0.11-0.59); Monocytes % (auto) 7.9 %; Neutrophils # (auto) 6.08 K/uL (1.4-6.5); Neutrophils % (auto) 69.8 %; Platelet Count 252 K/uL (130-400); RDW Coefficient of Variation 13.9 % (11.5-14.5); RDW Standard Deviation 49.9 fL (36.4-46.3); Red Blood Count 4.02 M/uL (4.2-5.4); White Blood Count 8.72 K/uL (4.8-10.8)
[2022-04-15 07:32] LABS: BUN Creatinine Ratio 12.9 (10-20); C Reactive Protein 1.92 mg/dl (0-0.5); Calcium 8.5 mg/dl (8.5-10.1); Creatinine Clr Calc Pharmacy 70.8 ml/min; Est GFR (African American) 85.1 ml/min; Est GFR (Non-African American) 73.4 ml/min
[2022-04-15] MEDS: dexAMETHasone 6 MG in SYRINGE 0 ML IV SCH (08:15)
[2022-04-15] MEDS: SERTRALINE HCL 100 MG TABLET PO SCH (08:15)
[2022-04-15] MEDS: METOPROLOL SUCC 25MG EXT REL TAB PO SCH (08:15)
[2022-04-15] MEDS: FLUTICASONE/VILANTEROL 200/25MCG 14 PUFFS/INHALER INH SCH (08:16)
[2022-04-15] MEDS: ACETAMINOPHEN 325 MG TAB PO PRN (08:17)
[2022-04-15] MEDS: BENZONATATE 100 MG CAPSULE PO PRN (08:17)
[2022-04-15] MEDS: REMDESIVIR 100 MG in SODIUM CHLORIDE 0.9% 230 ML IV SCH (12:01)
--- NOTE | 2022-04-15 12:36 | Hospitalist Progress Note ---
Date of Service April 15, 2022 Assessment & Plan (1) Pneumonia due to COVID-19 virus: (2) Hypoxia: Plan: 61-year-old female presents with shortness of breath and chest tightness with history of asthma and COVID. 1. Asthma exacerbation, secondary to COVID, requiring oxygen - CRP elevated - meets criteria for remdesivir which was started on admission and will be continued for up to 5 days - started on dexamethasone, will continue up to 10 days - nebs around the clock and p.r.n., Advair Diskus and albuterol p.r.n. and closely monitor in the med tele. -Initially on 2 liters of oxygen, then shortly on room air, reports that she used oxygen again overnight -Continue to closely monitor 2. History of migraine. Continue her home medications. 3. History of paroxysmal supraventricular tachycardia. Continue metoprolol. Patient is also on mexiletine 250 mg twice a day. As we do not have 250 mg dosage in our pharmacy, patient will be placed on 150 mg 3 times a day. DVT prophylaxis: Lovenox. DISPOSITION: med tele Code status: Full Admission and Anticipated Discharge Date Admission Date: April 14, 2022 Subjective Patient seen in follow-up of COVID-19 pneumonia, Hypoxia Patient initially on 2 L of oxygen Continues to have cough, she also has history of asthma Currently is breathing on room air, Appears comfortable Denies fevers, chills,Abdominal pain, nausea vomiting Reports having chest Tightness last night, however now feeling better Review of Systems Review of Systems: All systems reviewed & are unremarkable except as noted in Subjective Physical Exam Physical Exam: GENERAL: WD/WN F not in acute distress. HEENT: NC/AT. EOMI. No pallor, no icterus. Pupils equal, round and reactive to light. Oral mucosa moist. NECK: No JVD. No neck masses. CARDIOVASCULAR: S1 and S2 heard. Regular rate and rhythm. No murmur, no gallop. RESPIRATORY SYSTEM: Normal AP diameter. No accessory muscle use. No wheezing. Diminished breath sounds. No crackles. ABDOMEN: Soft. Bowel sounds are present, nontender, no distention. CENTRAL NERVOUS SYSTEM:Alert oriented, Answering questions appropriately, no facial asymmetry, speech fluent, moves extremities EXTREMITIES: No edema, no erythema Results & Data Results & Data ([facility]) Vital Signs (Past 12 Hours) Vital Signs Temp Pulse Pulse Resp BP Pulse Ox 04/15/22 11:16 72 16 94 04/15/22 11:00 36.6 C 73 18 120/68 94 04/15/22 10:54 65 04/15/22 07:56 36.8 C 77 20 101/56 L 94 04/15/22 07:06 74 16 92 04/15/22 03:04 37.1 C 75 18 94/56 L 95 Laboratory Results 04/15/22 04/15/22 Range/Units 05:47 05:47 WBC 8.72 (4.8-10.8) K/uL RBC 4.02 L (4.2-5.4) M/uL Hgb 12.8 (12.0-16.0) g/dL Hct 39.2 (37-47) % MCV 97.5 (80-100) fL MCH 31.8 (25-34) pg MCHC 32.7 (32-36) g/dL RDW Std Deviation 49.9 H (36.4-46.3) fL RDW Coeff of Babita 13.9 (11.5-14.5) % Plt Count 252 (130-400) K/uL MPV 8.7 (7.4-10.4) fL Immature Gran % (Auto) 0.2 % Neut % (Auto) 69.8 % Lymph % (Auto) 21.9 % Esmeralda % (Auto) 7.9 % Eos % (Auto) 0.1 % Baso % (Auto) 0.1 % Neut # (Auto) 6.08 (1.4-6.5) K/uL Lymph # (Auto) 1.91 (1.2-3.4) K/uL Esmeralda # (Auto) 0.69 H (0.11-0.59) K/uL Eos # (Auto) 0.01 (0-0.5) K/uL Baso # (Auto) 0.01 (0-0.2) K/uL Immature Gran # (Auto) 0.02 (0.00-0.02) K/uL Sodium 138 (136-145) mmol/L Potassium 4.0 (3.5-5.1) mmol/L Chloride 107 (98-107) mmol/L Carbon Dioxide 25 (21-32) mmol/L Anion Gap 6 (3-11) BUN 11 (6-23) mg/dl Creatinine 0.85 (0.6-1.2) mg/dl Est Cr Clr Drug Dosing 70.8 ml/min Est GFR ( Amer) 85.1 ml/min Est GFR (Non-Af Amer) 73.4 ml/min BUN/Creatinine Ratio 12.9 (10-20) Glucose 99 (70-99(Fasting)) mg/dl Calcium 8.5 (8.5-10.1) mg/dl Magnesium 2.0 (1.7-2.4) mg/dl C-Reactive Protein 1.92 H (0-0.5) mg/dl Medications Administered Current Inpatient Medications Acetaminophen (Acetaminophen 325 Mg Tab) 650 mg PO Q4H PRN PRN Reason: Pain or Fever Stop: 05/14/22 12:31 Last Admin: 04/15/22 08:17 Dose: 650 mg Documented by: Albuterol (Albuterol Hfa 8 Gm Inhaler) 2 puffs INH Q4H PRN PRN Reason: Shortness Of Breath Or Wheezing Stop: 05/14/22 12:31 Last Admin: 04/15/22 11:16 Dose: 2 puffs Documented by: Benzonatate (Benzonatate 100 Mg Capsule) 100 mg PO QID PRN PRN Reason: Cough Stop: 05/14/22 12:11 Last Admin: 04/15/22 08:17 Dose: 100 mg Documented by: Carisoprodol (Carisoprodol 350 Mg Tablet) 350 mg PO DAILY PRN PRN Reason: muscle pain Stop: 05/14/22 12:31 Diphenhydramine HCl (Diphenhydramine Capsule 25 Mg Cap) 50 mg PO HS HIEN Stop: 05/14/22 20:59 Last Admin: 04/14/22 21:09 Dose: 50 mg Documented by: Enoxaparin Sodium (Enoxaparin Inj 40 Mg/0.4 Ml Syr) 40 mg SQ Q24H HIEN Stop: 05/14/22 13:59 Last Admin: 04/14/22 13:21 Dose: 40 mg Documented by: Fluticasone/Vilanterol (Fluticasone/Vilanterol 200/25mcg 14 Puffs/Inhaler) 1 puffs INH DAILY HIEN Stop: 05/14/22 13:59 Last Admin: 04/15/22 08:16 Dose: 1 puffs Documented by: Guaifenesin/Dextromethorphan (Guaifenesin/Dextrom Syrup 100mg/10mg 5ml Udc) 5 ml PO Q6H PRN PRN Reason: Cough Stop: 05/14/22 21:52 Last Admin: 04/15/22 06:11 Dose: 5 ml Documented by: Remdesivir 100 mg/ Sodium (Chloride) 250 mls @ 250 mls/hr IV Q24H HIEN Stop: 04/18/22 12:59 Last Admin: 04/15/22 12:01 Dose: 250 mls/hr Documented by: Dexamethasone 6 mg/ Syringe 1.5 mls @ 1 mls/min IV DAILY HIEN Stop: 04/24/22 12:59 Last Admin: 04/15/22 08:15 Dose: 1 mls/min Documented by: Ipratropium [place] (Ipratropium [place] Neb Soln 0.02% 2.5 Ml Vial) 0.5 mg INH Q6R HIEN Stop: 05/14/22 12:59 Last Admin: 04/15/22 07:06 Dose: 0.5 mg Documented by: Levalbuterol HCl (Levalbuterol 1.25mg/0.5ml Neb) 1.25 mg INH Q6R HIEN Stop: 05/14/22 12:59 Last Admin: 04/15/22 07:06 Dose: 1.25 mg Documented by: Levalbuterol HCl (Levalbuterol Hcl 1.25 Mg/3 Ml Neb) 1.25 mg NEB Q4H PRN; Protocol PRN Reason: Shortness Of Breath Or Wheezing Stop: 05/14/22 12:31 Melatonin (Melatonin 3 Mg Tab) 3 mg PO HS HIEN Stop: 05/14/22 20:59 Last Admin: 04/14/22 21:09 Dose: 3 mg Documented by: Metoprolol Succinate (Metoprolol Succ 25mg Ext Rel Tab) 25 mg PO DAILY HIEN Stop: 05/14/22 12:31 Last Admin: 04/15/22 08:15 Dose: 25 mg Documented by: Miscellaneous (Eletriptan 40 Mg: Order Awaiting Action) 1 ea N/A QS HIEN Stop: 05/14/22 15:59 Last Admin: 04/15/22 11:35 Dose: Not Given Documented by: Miscellaneous (Mexiletine 250 Mg: Order Awaiting Action) 1 ea N/A QS HIEN Stop: 05/14/22 15:59 Last Admin: 04/15/22 11:35 Dose: Not Given Documented by: Nabumetone (Nabumetone 500 Mg Tablet) 500 mg PO BID PRN PRN Reason: Pain Stop: 05/14/22 12:31 Nitroglycerin (Nitroglycerin Sl 0.4 Mg/Tab Tab) 0.4 mg SL UD PRN PRN Reason: Chest Pain Stop: 05/14/22 12:31 Ondansetron HCl (Ondansetron Inj 2 Mg/Ml 2 Ml Vial) 4 mg IV Q6H PRN PRN Reason: Nausea Stop: 05/14/22 12:31 Polyethylene Glycol (Polyethylene (Miralax) 17 Gm Pack) 17 gm PO DAILY PRN PRN Reason: Constipation Stop: 05/14/22 12:31 Sertraline HCl (Sertraline Hcl 100 Mg Tablet) 100 mg PO DAILY [facility] Stop: 05/14/22 12:31 Last Admin: 04/15/22 08:15 Dose: 100 mg Documented by:
[2022-04-15] MEDS: ENOXAPARIN INJ 40 MG/0.4 ML SYR SQ SCH (13:39)
[2022-04-15] MEDS: MEXILETINE HCL 250 MG PO SCH (20:55)
[2022-04-15] MEDS: diphenhydrAMINE Capsule 25 MG CAP PO SCH (20:55)
[2022-04-15] MEDS: MELATONIN 3 MG TAB PO SCH (20:55)
[2022-04-15] MEDS ORDERED: MEXILETINE HCL 150 MG CAPSULE PO SCH (21:00)
[2022-04-16] MEDS: LEVALBUTEROL 1.25MG/0.5ML NEB INH SCH ×4 (00:33→19:17)
[2022-04-16] MEDS: IPRATROPIUM BROMIDE NEB SOLN 0.02% 2.5 ML VIAL INH SCH ×4 (00:33→19:17)
[2022-04-16] MEDS: guaiFENesin/DEXTROM SYRUP 100MG/10MG 5ML UDC PO PRN (03:49)
[2022-04-16 07:22] LABS: Hematocrit (blood only) 37.9 % (37-47); Hemoglobin 12.9 g/dL (12.0-16.0); Mean Corpuscular Hemoglobin 33.3 pg (25-34); Mean Corpuscular Volume 97.9 fL (80-100); Mean Platelet Volume 8.5 fL (7.4-10.4); Platelet Count 207 K/uL (130-400); RDW Coefficient of Variation 13.9 % (11.5-14.5); RDW Standard Deviation 49.8 fL (36.4-46.3); Red Blood Count 3.87 M/uL (4.2-5.4); White Blood Count 8.09 K/uL (4.8-10.8)
[2022-04-16] MEDS: dexAMETHasone 6 MG in SYRINGE 0 ML IV SCH (07:38)
[2022-04-16] MEDS: SERTRALINE HCL 100 MG TABLET PO SCH (07:39)
[2022-04-16] MEDS: MEXILETINE HCL 250 MG PO SCH ×2 (07:39→20:32)
[2022-04-16] MEDS: METOPROLOL SUCC 25MG EXT REL TAB PO SCH (07:39)
[2022-04-16] MEDS: FLUTICASONE/VILANTEROL 200/25MCG 14 PUFFS/INHALER INH SCH (07:39)
[2022-04-16] MEDS: HYDROcodone/HOMATROPINE SYRUP 5MG/1.5MG 5ML UDP PO PRN ×3 (07:51→22:26)
[2022-04-16 08:00] LABS: BUN Creatinine Ratio 14.3 (10-20); Calcium 8.6 mg/dl (8.5-10.1); Est GFR (African American) 78.4 ml/min; Est GFR (Non-African American) 67.6 ml/min; Phosphorus 3.4 mg/dl (2.5-4.9); Potassium 3.8 mmol/L (3.5-5.1)
[2022-04-16] MEDS: REMDESIVIR 100 MG in SODIUM CHLORIDE 0.9% 230 ML IV SCH (11:55)
[2022-04-16] MEDS: ENOXAPARIN INJ 40 MG/0.4 ML SYR SQ SCH (13:26)
--- NOTE | 2022-04-16 18:16 | Hospitalist Progress Note ---
Date of Service April 16, 2022 Assessment & Plan (1) Pneumonia due to COVID-19 virus: (2) Hypoxia: Plan: 61-year-old female presents with shortness of breath and chest tightness with history of asthma and COVID. CXR 04/14 - Tiny focus of airspace opacities in the right lower lobe may represent aspiration, atelectasis, and/or pneumonia. COVID positive 04/14 1. COVID 19 pneumonia with mild asthma exacerbation and intermittent hypoxia - On remdesevir D3/5, on decadron D3/10, continue nebs, IS, mucinex - intermittently requiring oxygen; send sputum clx if able - Follow up on inflammatory markers - supplemental oxygen as needed 2. History of migraine. Continue home medications. 3. History of PSVT- continue metoprolol, mexiletene DVT prophylaxis:sq Lovenox. Dispo: D3 of remdesevir Admission and Anticipated Discharge Date Admission Date: April 14, 2022 Subjective Hensley short of breath last night with sputum expectoration and required some oxygen. Feels better today. She does not feel ready to go home yet. No fever or chills. Ambulating in the room. Proning intermittently. Physical Exam Physical Exam: General: Sitting comfortably in chair, not in distress, on room air HEENT: EOMI, CODY, MMM Chest: Clear breath sounds bilaterally, no wheezes or crackles CVS: Regular rate and rhythm, normal heart sounds, no murmur Abdomen: Soft, non tender, not distended, normal bowel sounds Neuro: Awake, alert, oriented, conversing well, non focal Extremities: No cyanosis, clubbing or edema Results & Data Results & Data ([facility]) Vital Signs (Past 12 Hours) Vital Signs Temp Pulse Pulse Resp BP Pulse Ox 04/16/22 15:10 78 04/16/22 15:04 36.8 C 79 19 109/71 97 04/16/22 13:05 75 18 94 04/16/22 11:50 36.8 C 71 18 109/68 94 04/16/22 09:37 63 04/16/22 06:58 78 18 97 04/16/22 06:31 36.9 C 67 18 116/73 96 Laboratory Results Short CBC 04/16/22 Range/Units 07:04 WBC 8.09 (4.8-10.8) K/uL Hgb 12.9 (12.0-16.0) g/dL Hct 37.9 (37-47) % Plt Count 207 (130-400) K/uL BMP 04/16/22 07:04 Sodium 139 Potassium 3.8 Chloride 107 Carbon Dioxide 26 BUN 13 Creatinine 0.91 Glucose 84 Calcium 8.6 Liver Function 04/16/22 Range/Units 07:04 AST 22 (13-39) U/L ALT 15 (7-52) U/L Medications Administered Current Inpatient Medications Acetaminophen (Acetaminophen 325 Mg Tab) 650 mg PO Q4H PRN PRN Reason: Pain or Fever Stop: 05/14/22 12:31 Last Admin: 04/15/22 08:17 Dose: 650 mg Documented by: Albuterol (Albuterol Hfa 8 Gm Inhaler) 2 puffs INH Q4H PRN PRN Reason: Shortness Of Breath Or Wheezing Stop: 05/14/22 12:31 Last Admin: 04/15/22 11:16 Dose: 2 puffs Documented by: Benzonatate (Benzonatate 100 Mg Capsule) 100 mg PO QID PRN PRN Reason: Cough Stop: 05/14/22 12:11 Last Admin: 04/15/22 08:17 Dose: 100 mg Documented by: Carisoprodol (Carisoprodol 350 Mg Tablet) 350 mg PO DAILY PRN PRN Reason: muscle pain Stop: 05/14/22 12:31 Diphenhydramine HCl (Diphenhydramine Capsule 25 Mg Cap) 50 mg PO HS HIEN Stop: 05/14/22 20:59 Last Admin: 04/15/22 20:55 Dose: 50 mg Documented by: Enoxaparin Sodium (Enoxaparin Inj 40 Mg/0.4 Ml Syr) 40 mg SQ Q24H HIEN Stop: 05/14/22 13:59 Last Admin: 04/16/22 13:26 Dose: 40 mg Documented by: Fluticasone/Vilanterol (Fluticasone/Vilanterol 200/25mcg 14 Puffs/Inhaler) 1 puffs INH DAILY HIEN Stop: 05/14/22 13:59 Last Admin: 04/16/22 07:39 Dose: 1 puffs Documented by: Guaifenesin (Guaifenesin 600 Mg Tabcr) 1,200 mg PO Q12 HIEN Stop: 05/16/22 20:59 Hydrocodone Bit/Homatropine Methylb (Hydrocodone/Homatropine Syrup 5mg/1.5mg 5ml Udp) 5 ml PO Q6H PRN PRN Reason: Cough Stop: 04/30/22 06:43 Last Admin: 04/16/22 15:28 Dose: 5 ml Documented by: Remdesivir 100 mg/ Sodium (Chloride) 250 mls @ 250 mls/hr IV Q24H HIEN Stop: 04/18/22 12:59 Last Infusion: 04/16/22 13:09 Dose: Infused Documented by: Dexamethasone 6 mg/ Syringe 1.5 mls @ 1 mls/min IV DAILY HIEN Stop: 04/24/22 12:59 Last Admin: 04/16/22 07:38 Dose: 1 mls/min Documented by: Ipratropium [place] (Ipratropium [place] Neb Soln 0.02% 2.5 Ml Vial) 0.5 mg INH Q6R HIEN Stop: 05/14/22 12:59 Last Admin: 04/16/22 13:05 Dose: 0.5 mg Documented by: Levalbuterol HCl (Levalbuterol 1.25mg/0.5ml Neb) 1.25 mg INH Q6R HIEN Stop: 05/14/22 12:59 Last Admin: 04/16/22 13:05 Dose: 1.25 mg Documented by: Levalbuterol HCl (Levalbuterol Hcl 1.25 Mg/3 Ml Neb) 1.25 mg NEB Q4H PRN; Protocol PRN Reason: Shortness Of Breath Or Wheezing Stop: 05/14/22 12:31 Last Admin: 04/16/22 06:57 Dose: 1.25 mg Documented by: Melatonin (Melatonin 3 Mg Tab) 3 mg PO HS HIEN Stop: 05/14/22 20:59 Last Admin: 04/15/22 20:55 Dose: 3 mg Documented by: Metoprolol Succinate (Metoprolol Succ 25mg Ext Rel Tab) 25 mg PO DAILY HIEN Stop: 05/14/22 12:31 Last Admin: 04/16/22 07:39 Dose: 25 mg Documented by: Mexiletine HCl (Mexiletine Hcl 250 Mg Capsules) 1 ea PO BID HIEN Stop: 05/15/22 20:59 Last Admin: 04/16/22 07:39 Dose: 1 ea Documented by: Nabumetone (Nabumetone 500 Mg Tablet) 500 mg PO BID PRN PRN Reason: Pain Stop: 05/14/22 12:31 Nitroglycerin (Nitroglycerin Sl 0.4 Mg/Tab Tab) 0.4 mg SL UD PRN PRN Reason: Chest Pain Stop: 05/14/22 12:31 Ondansetron HCl (Ondansetron Inj 2 Mg/Ml 2 Ml Vial) 4 mg IV Q6H PRN PRN Reason: Nausea Stop: 05/14/22 12:31 Polyethylene Glycol (Polyethylene (Miralax) 17 Gm Pack) 17 gm PO DAILY PRN PRN Reason: Constipation Stop: 05/14/22 12:31 Sertraline HCl (Sertraline Hcl 100 Mg Tablet) 100 mg PO DAILY HIEN Stop: 05/14/22 12:31 Last Admin: 04/16/22 07:39 Dose: 100 mg Documented by:
[2022-04-16] MEDS: diphenhydrAMINE Capsule 25 MG CAP PO SCH (20:32)
[2022-04-16] MEDS: MELATONIN 3 MG TAB PO SCH (20:32)
[2022-04-16] MEDS: guaiFENesin 600 MG TABCR PO SCH (20:32)
[2022-04-16] MEDS: BENZONATATE 100 MG CAPSULE PO PRN (23:58)
[2022-04-17] MEDS: IPRATROPIUM BROMIDE NEB SOLN 0.02% 2.5 ML VIAL INH SCH ×4 (00:45→19:07)
[2022-04-17] MEDS: LEVALBUTEROL 1.25MG/0.5ML NEB INH SCH ×4 (00:46→19:07)
[2022-04-17] MEDS: HYDROcodone/HOMATROPINE SYRUP 5MG/1.5MG 5ML UDP PO PRN ×3 (04:37→17:08)
[2022-04-17] MEDS: BENZONATATE 100 MG CAPSULE PO PRN ×2 (05:54→11:59)
[2022-04-17 08:56] LABS: BUN Creatinine Ratio 16.5 (10-20); C Reactive Protein 2.36 mg/dl (0-0.5); Calcium 8.5 mg/dl (8.5-10.1); Creatinine Clr Calc Pharmacy 70.9 ml/min; Est GFR (African American) 85.1 ml/min; Est GFR (Non-African American) 73.4 ml/min; Potassium 3.6 mmol/L (3.5-5.1)
[2022-04-17] MEDS: dexAMETHasone 1 MG TAB PO SCH (09:32)
[2022-04-17] MEDS: guaiFENesin 600 MG TABCR PO SCH ×2 (09:33→21:55)
[2022-04-17] MEDS: FLUTICASONE/VILANTEROL 200/25MCG 14 PUFFS/INHALER INH SCH (09:33)
[2022-04-17] MEDS: METOPROLOL SUCC 25MG EXT REL TAB PO SCH (09:33)
[2022-04-17] MEDS: MEXILETINE HCL 250 MG PO SCH ×2 (09:34→21:52)
[2022-04-17] MEDS: SERTRALINE HCL 100 MG TABLET PO SCH (09:35)
[2022-04-17] MEDS: REMDESIVIR 100 MG in SODIUM CHLORIDE 0.9% 230 ML IV SCH (11:46)
[2022-04-17] MEDS: ENOXAPARIN INJ 40 MG/0.4 ML SYR SQ SCH (13:07)
--- NOTE | 2022-04-17 18:45 | Hospitalist Progress Note ---
Date of Service April 17, 2022 Assessment & Plan (1) Pneumonia due to COVID-19 virus: (2) Hypoxia: Plan: 61-year-old female presents with shortness of breath and chest tightness with history of asthma and COVID. CXR 04/14 - Tiny focus of airspace opacities in the right lower lobe may represent aspiration, atelectasis, and/or pneumonia. COVID positive 04/14 1. COVID 19 pneumonia with mild asthma exacerbation and intermittent hypoxia - On remdesevir D4/5, on decadron D4/10, continue nebs, IS, flutter valve, mucinex, tessalon perles. Self proning intermittently - sputum clx with normal dominique as of now - Follow up on inflammatory markers - hypoxia resolved. 2. History of migraine. Continue home medications. 3. History of PSVT- continue metoprolol, mexiletene DVT prophylaxis:sq Lovenox. Dispo: D4 of remdesevir Admission and Anticipated Discharge Date Admission Date: April 14, 2022 Subjective Feeling better. Using IS and flutter valve. No fever, chills, nausea, vomiting. Nebs and cough medicine helping. Cough is now dry. Did not have to use any oxygen since yesterday, Physical Exam Physical Exam: General: Sitting comfortably in chair, not in distress, on room air HEENT: EOMI, CODY, MMM Chest: Clear breath sounds bilaterally, no wheezes or crackles CVS: Regular rate and rhythm, normal heart sounds, no murmur Abdomen: Soft, non tender, not distended, normal bowel sounds Neuro: Awake, alert, oriented, conversing well, non focal Extremities: No cyanosis, clubbing or edema Results & Data Results & Data ([facility]) Vital Signs (Past 12 Hours) Vital Signs Temp Pulse Pulse Resp BP Pulse Ox 04/17/22 16:08 36.6 C 72 18 109/68 96 04/17/22 12:31 74 16 95 04/17/22 11:57 36.6 C 73 18 105/69 99 04/17/22 10:14 66 04/17/22 09:31 36.7 C 76 16 123/72 94 04/17/22 07:06 63 20 96 Laboratory Results [facility] 04/17/22 07:21 Sodium 139 Potassium 3.6 Chloride 105 Carbon Dioxide 26 BUN 14 Creatinine 0.85 Glucose 79 Calcium 8.5 Liver Function 04/17/22 Range/Units 07:21 AST 27 (13-39) U/L ALT 19 (7-52) U/L Medications Administered Current Inpatient Medications Acetaminophen (Acetaminophen 325 Mg Tab) 650 mg PO Q4H PRN PRN Reason: Pain or Fever Stop: 05/14/22 12:31 Last Admin: 04/15/22 08:17 Dose: 650 mg Documented by: Albuterol (Albuterol Hfa 8 Gm Inhaler) 2 puffs INH Q4H PRN PRN Reason: Shortness Of Breath Or Wheezing Stop: 05/14/22 12:31 Last Admin: 04/15/22 11:16 Dose: 2 puffs Documented by: Benzonatate (Benzonatate 100 Mg Capsule) 100 mg PO QID PRN PRN Reason: Cough Stop: 05/14/22 12:11 Last Admin: 04/17/22 11:59 Dose: 100 mg Documented by: Carisoprodol (Carisoprodol 350 Mg Tablet) 350 mg PO DAILY PRN PRN Reason: muscle pain Stop: 05/14/22 12:31 Dexamethasone (Dexamethasone 1 Mg Tab) 6 mg PO QAM HIEN Stop: 05/17/22 08:59 Last Admin: 04/17/22 09:32 Dose: 6 mg Documented by: Diphenhydramine HCl (Diphenhydramine Capsule 25 Mg Cap) 50 mg PO HS HIEN Stop: 05/14/22 20:59 Last Admin: 04/16/22 20:32 Dose: 50 mg Documented by: Enoxaparin Sodium (Enoxaparin Inj 40 Mg/0.4 Ml Syr) 40 mg SQ Q24H HIEN Stop: 05/14/22 13:59 Last Admin: 04/17/22 13:07 Dose: 40 mg Documented by: Fluticasone/Vilanterol (Fluticasone/Vilanterol 200/25mcg 14 Puffs/Inhaler) 1 puffs INH DAILY HIEN Stop: 05/14/22 13:59 Last Admin: 04/17/22 09:33 Dose: 1 puffs Documented by: Guaifenesin (Guaifenesin 600 Mg Tabcr) 1,200 mg PO Q12 HIEN Stop: 05/16/22 20:59 Last Admin: 04/17/22 09:33 Dose: 1,200 mg Documented by: Hydrocodone Bit/Homatropine Methylb (Hydrocodone/Homatropine Syrup 5mg/1.5mg 5ml Udp) 5 ml PO Q6H PRN PRN Reason: Cough Stop: 04/30/22 06:43 Last Admin: 04/17/22 17:08 Dose: 5 ml Documented by: Remdesivir 100 mg/ Sodium (Chloride) 250 mls @ 250 mls/hr IV Q24H HIEN Stop: 04/18/22 12:59 Last Infusion: 04/17/22 13:06 Dose: Infused Documented by: Ipratropium [place] (Ipratropium [place] Neb Soln 0.02% 2.5 Ml Vial) 0.5 mg INH Q6R HIEN Stop: 05/14/22 12:59 Last Admin: 04/17/22 12:30 Dose: 0.5 mg Documented by: Levalbuterol HCl (Levalbuterol 1.25mg/0.5ml Neb) 1.25 mg INH Q6R HIEN Stop: 05/14/22 12:59 Last Admin: 04/17/22 12:30 Dose: 1.25 mg Documented by: Levalbuterol HCl (Levalbuterol Hcl 1.25 Mg/3 Ml Neb) 1.25 mg NEB Q4H PRN; Protocol PRN Reason: Shortness Of Breath Or Wheezing Stop: 05/14/22 12:31 Last Admin: 04/16/22 06:57 Dose: 1.25 mg Documented by: Melatonin (Melatonin 3 Mg Tab) 3 mg PO HS HIEN Stop: 05/14/22 20:59 Last Admin: 04/16/22 20:32 Dose: 3 mg Documented by: Metoprolol Succinate (Metoprolol Succ 25mg Ext Rel Tab) 25 mg PO DAILY HIEN Stop: 05/14/22 12:31 Last Admin: 04/17/22 09:33 Dose: 25 mg Documented by: Mexiletine HCl (Mexiletine Hcl 250 Mg Capsules) 1 ea PO BID HIEN Stop: 05/15/22 20:59 Last Admin: 04/17/22 09:34 Dose: 1 ea Documented by: Nabumetone (Nabumetone 500 Mg Tablet) 500 mg PO BID PRN PRN Reason: Pain Stop: 05/14/22 12:31 Nitroglycerin (Nitroglycerin Sl 0.4 Mg/Tab Tab) 0.4 mg SL UD PRN PRN Reason: Chest Pain Stop: 05/14/22 12:31 Ondansetron HCl (Ondansetron Inj 2 Mg/Ml 2 Ml Vial) 4 mg IV Q6H PRN PRN Reason: Nausea Stop: 05/14/22 12:31 Polyethylene Glycol (Polyethylene (Miralax) 17 Gm Pack) 17 gm PO DAILY PRN PRN Reason: Constipation Stop: 05/14/22 12:31 Sertraline HCl (Sertraline Hcl 100 Mg Tablet) 100 mg PO DAILY HIEN Stop: 05/14/22 12:31 Last Admin: 04/17/22 09:35 Dose: 100 mg Documented by:
[2022-04-17] MEDS ORDERED: LEVALBUTEROL HCL 1.25 MG/3 ML NEB NEB PRN (19:41)
[2022-04-17] MEDS: diphenhydrAMINE Capsule 25 MG CAP PO SCH (21:53)
[2022-04-17] MEDS: MELATONIN 3 MG TAB PO SCH (21:53)
[2022-04-17] MEDS: BENZONATATE 100 MG CAPSULE PO SCH (21:56)
[2022-04-18 06:35] LABS: Hematocrit (blood only) 37.2 % (37-47); Hemoglobin 12.6 g/dL (12.0-16.0); Mean Corpuscular Hgb Conc 33.9 g/dL (32-36); Mean Corpuscular Volume 97.4 fL (80-100); Mean Platelet Volume 8.8 fL (7.4-10.4); Platelet Count 281 K/uL (130-400); RDW Coefficient of Variation 13.5 % (11.5-14.5); RDW Standard Deviation 48.2 fL (36.4-46.3); Red Blood Count 3.82 M/uL (4.2-5.4); White Blood Count 6.59 K/uL (4.8-10.8)
[2022-04-18 07:00] LABS: Albumin Globulin Ratio 1.5 (0.9-2); Albumin Level 3.7 gm/dl (3.4-5.0); BUN Creatinine Ratio 18.4 (10-20); Bilirubin,Total 0.3 mg/dl (0.2-1.0); C Reactive Protein 2.45 mg/dl (0-0.5); Calcium 8.5 mg/dl (8.5-10.1); Creatinine Clr Calc Pharmacy 79.2 ml/min; Est GFR (African American) 97.4 ml/min; Est GFR (Non-African American) 84.1 ml/min; Globulin 2.4 gm/dl (2.5-4.0); Potassium 3.8 mmol/L (3.5-5.1); Total Protein 6.1 gm/dl (6.0-8.3)
[2022-04-18] MEDS: HYDROcodone/HOMATROPINE SYRUP 5MG/1.5MG 5ML UDP PO PRN (07:50)
[2022-04-18] MEDS: BENZONATATE 100 MG CAPSULE PO SCH (09:41)
[2022-04-18] MEDS: FLUTICASONE/VILANTEROL 200/25MCG 14 PUFFS/INHALER INH SCH (09:42)
[2022-04-18] MEDS: dexAMETHasone 1 MG TAB PO SCH (09:42)
[2022-04-18] MEDS: guaiFENesin 600 MG TABCR PO SCH (09:43)
[2022-04-18] MEDS: MEXILETINE HCL 250 MG PO SCH (09:44)
[2022-04-18] MEDS: METOPROLOL SUCC 25MG EXT REL TAB PO SCH (09:44)
[2022-04-18] MEDS: SERTRALINE HCL 100 MG TABLET PO SCH (09:45)
[2022-04-18] MEDS: REMDESIVIR 100 MG in SODIUM CHLORIDE 0.9% 230 ML IV SCH (11:08)
--- NOTE | 2022-04-18 17:36 | Discharge Summary ---
Date of Service April 18, 2022 Admission HPI Per Admitting Provider A 61-year-old female with past medical history significant for mixed hyperlipidemia, history of paroxysmal supraventricular tachycardia, microscopic colitis, irritable bowel syndrome, microscopic hematuria, degenerative disk disease, history of retinal edema, history of migraines,history of asthma history of atrial fibrillation, status post pulmonary vein isolation as well as radiofrequency ablation of an atrial tachycardia, presents with shortness of breath. The patient has history of asthma, she gets on and off asthma, ones a while uses albuterol. 2-3 weeks ago, she was started on Advair and albuterol p.r.n. for asthma. Since last she is having COVID symptoms with headache, cough, and it got progressively worse. Yesterday, she was feeling chest tightness and feeling more short of breath and cough was not stopping, so she came to the ER. She has 88% oxygen on room air, with nasal cannula she is saturating high 90s. After the oxygen supplementation her chest tightness resolved. She is resting comfortably currently. She never had a fever. Having headaches, but they are different from her migraine headaches. Some pressure in the ears. No runny nose, sore throat from coughing. No nausea. Appetite is down. No loss of sense of smell or taste. No abdominal pain, no diarrhea or constipation. Normal bladder movements. No rash. Admission Exam Per Admitting Provider GENERAL: The patient is of moderate build, not in acute distress. VITAL SIGNS: Temperature 36.8, pulse 81, respiratory rate 18, blood pressure 1 31/74, oxygen 88% on room air, currently 90% on oxygen. HEENT: No pallor, no icterus. Pupils equal, round and reactive to light. Oral mucosa moist. NECK: No JVD. No neck masses. CARDIOVASCULAR: S1 and S2 heard. Regular rate and rhythm. No murmur, no gallop. RESPIRATORY SYSTEM: Normal AP diameter. No accessory muscle use. No wheezing. Diminished breath sounds. No crackles. ABDOMEN: Soft. Bowel sounds are present, nontender, no distention. CENTRAL NERVOUS SYSTEM: Cranial nerves II-XII grossly intact, nonfocal. EXTREMITIES: No edema, no erythema. Principal Diagnosis Pneumonia due to covid 19 with intermittent hypoxia, Mild asthma exacerbation Discharge Exam General: Sitting comfortably in chair, not in distress, on room air HEENT: EOMI, CODY, MMM Chest: Clear breath sounds bilaterally, no wheezes or crackles CVS: Regular rate and rhythm, normal heart sounds, no murmur Abdomen: Soft, non tender, not distended, normal bowel sounds Neuro: Awake, alert, oriented, conversing well, non focal Extremities: No cyanosis, clubbing or edema Discharge Data Allergies Allergy/AdvReac Type Severity Reaction Status Date / Time erythromycin base Allergy Severe SHORTNESS Verified 04/14/22 01:52 OF BREATH [id number] Allergy Severe SYSTEMIC Verified 04/14/22 01:52 [From Ajov] HIVES Macrolide Antibiotics Allergy Severe SHORTNESS Verified 04/14/22 01:52 OF BREATH bacitracin Allergy Intermediate SKIN Verified 04/14/22 01:52 IRRITATION polymyxin B Allergy Intermediate SKIN Verified 04/14/22 01:52 IRRITATION ragweed pollen Allergy Intermediate NASAL Verified 04/14/22 01:52 CONGESTION Consultations 04/14/22 06:11 ED Decision to Admit Stat Ordered Studies Laboratory Results WBC 6.59 K/uL (4.8-10.8) 04/18/22 05:42 RBC 3.82 M/uL (4.2-5.4) L 04/18/22 05:42 Hgb 12.6 g/dL (12.0-16.0) 04/18/22 05:42 Hct 37.2 % (37-47) 04/18/22 05:42 MCV 97.4 fL (80-100) 04/18/22 05:42 MCH 33.0 pg (25-34) 04/18/22 05:42 MCHC 33.9 g/dL (32-36) 04/18/22 05:42 RDW Std Deviation 48.2 fL (36.4-46.3) H 04/18/22 05:42 RDW Coeff of Babita 13.5 % (11.5-14.5) 04/18/22 05:42 Plt Count 281 K/uL (130-400) 04/18/22 05:42 MPV 8.8 fL (7.4-10.4) 04/18/22 05:42 Immature Gran % (Auto) 0.2 % 04/15/22 05:47 Neut % (Auto) 69.8 % 04/15/22 05:47 Lymph % (Auto) 21.9 % 04/15/22 05:47 Graves % (Auto) 7.9 % 04/15/22 05:47 Eos % (Auto) 0.1 % 04/15/22 05:47 Baso % (Auto) 0.1 % 04/15/22 05:47 Neut # (Auto) 6.08 K/uL (1.4-6.5) 04/15/22 05:47 Lymph # (Auto) 1.91 K/uL (1.2-3.4) 04/15/22 05:47 Graves # (Auto) 0.69 K/uL (0.11-0.59) H 04/15/22 05:47 Eos # (Auto) 0.01 K/uL (0-0.5) 04/15/22 05:47 Baso # (Auto) 0.01 K/uL (0-0.2) 04/15/22 05:47 Immature Gran # (Auto) 0.02 K/uL (0.00-0.02) 04/15/22 05:47 PT 10.3 Seconds (9.0-12.0) 04/14/22 02:06 INR 1.0 (0.9-1.1) 04/14/22 02:06 APTT 28.0 Seconds (21.0-31.0) 04/14/22 02:06 PTT Ratio 1.0 04/14/22 02:06 D-Dimer 250 ug/L FEU (0-500) 04/14/22 02:06 Sodium 138 mmol/L (136-145) 04/18/22 05:42 Potassium 3.8 mmol/L (3.5-5.1) 04/18/22 05:42 Chloride 106 mmol/L (98-107) 04/18/22 05:42 Carbon Dioxide 25 mmol/L (21-32) 04/18/22 05:42 Anion Gap 7 (3-11) 04/18/22 05:42 BUN 14 mg/dl (6-23) 04/18/22 05:42 Creatinine 0.76 mg/dl (0.6-1.2) 04/18/22 05:42 Est Cr Clr Drug Dosing 79.2 ml/min 04/18/22 05:42 Est GFR ( Amer) 97.4 ml/min 04/18/22 05:42 Est GFR (Non-Af Amer) 84.1 ml/min 04/18/22 05:42 BUN/Creatinine Ratio 18.4 (10-20) 04/18/22 05:42 Glucose 87 mg/dl (70-99(Fasting)) 04/18/22 05:42 Calcium 8.5 mg/dl (8.5-10.1) 04/18/22 05:42 Phosphorus 3.4 mg/dl (2.5-4.9) 04/16/22 07:04 Magnesium 2.0 mg/dl (1.7-2.4) 04/16/22 07:04 Total Bilirubin 0.3 mg/dl (0.2-1.0) 04/18/22 05:42 AST 35 U/L (13-39) 04/18/22 05:42 ALT 35 U/L (7-52) 04/18/22 05:42 Alkaline Phosphatase 51 U/L (34-104) 04/18/22 05:42 Troponin I High Sens 3.9 pg/ml (0-14) 04/14/22 02:06 C-Reactive Protein 2.45 mg/dl (0-0.5) H 04/18/22 05:42 Total Protein 6.1 gm/dl (6.0-8.3) 04/18/22 05:42 Albumin 3.7 gm/dl (3.4-5.0) 04/18/22 05:42 Globulin 2.4 gm/dl (2.5-4.0) L 04/18/22 05:42 Albumin/Globulin Ratio 1.5 (0.9-2) 04/18/22 05:42 SARS-CoV-2 (PCR) POSITIVE (Negative) A* 04/14/22 06:12 Influenza Type A (PCR) Negative (Neg) 04/14/22 06:12 Influenza Type B (PCR) Negative (Neg) 04/14/22 06:12 RSV (RT-PCR) Negative (Neg) 04/14/22 06:12 Impressions Chest X-Ray 04/14/22 02:50 XR chest 1V portable CLINICAL HISTORY: SOB TECHNIQUE: Single frontal radiograph of the chest was obtained. Comparison: Comparison is made to chest radiograph 12/21/2014 FINDINGS: No lines and tubes are seen. The cardiomediastinal silhouette is normal. A tiny focus of airspace [place] in the right lower lobe. No evidence of pleural effusion or pneumothorax. IMPRESSION: Tiny focus of airspace opacities in the right lower lobe may represent aspiration, atelectasis, and/or pneumonia. ACT 112: Negative or not required by law. Electronically signed by: Hermilo Knight M.D. 04/14/2022 7:04 AM Hospital Course (1) Pneumonia due to COVID-19 virus: (2) Hypoxia: 61-year-old female presents with shortness of breath and chest tightness with history of asthma and COVID. CXR 04/14 - Tiny focus of airspace opacities in the right lower lobe may represent aspiration, atelectasis, and/or pneumonia. COVID positive 04/14 1. COVID 19 pneumonia with mild asthma exacerbation and intermittent hypoxia - On remdesevir D5/5, on decadron D5/10. She has improved and has been saturating well in room air for the past 2 days. Has some dry cough but overall improving. Continues to do well on IS, flutter valve, mucinex, tessalon perles. Self proning intermittently. Sputum clx with normal dominique. Inflammatory marker overall stable. She is comfortable and stable for discharge. Discharging on decadron and antitussives. Recommended isolation at home. Offered to update her daughter Danita (HILARY) but she already left for [place] this morning. - Hypoxia resolved. - Asthma exacerbation if any is mild- no wheezes on exam during all my encounters- already on decadron and inhaler. 2. History of migraine. Continue home medications. 3. History of PSVT- continue metoprolol, mexiletene Total Time Total Time Spent Total Time Spent (In Minutes): 35 Discharge Plan Discharge Items Patient Disposition: Home - Self-Care Reason For Visit: SOB Discharge Diagnosis: Pneumonia due to Covid 19 with intermittent hypoxia Activity: Resume your previous activity Non-emergency contact: Primary Care Provider Call non-emergency contact if: you have any medication questions, your symptoms worsen, your pain is not controlled and you have a fever Follow-up/Referrals: Abiodun Rivera MD [Primary Care Provider] - Diet: Regular Addtl Attending Provider Instructions: Continue decadron for 5 more days. You can take cough medicine as needed. Continue incentive spirometer and flutter valve Please see the information below Pending Studies at Discharge: No Stand-Alone Forms: My [facility], Smoking Cessation Medications and DC Order Prescriptions: New dexamethasone 1 mg Tablet 6 mg PO QAM Qty: 5 RF: 0 benzonatate 100 mg Capsule 100 mg PO TID PRN (Reason: cough) Qty: 20 RF: 0 fluticasone furoate-vilanterol [Breo Ellipta] 100-25 mcg/dose blister with device 1 inh inhalation DAILY Qty: 30 RF: 0 Robitussin Cough-Chest Alcides DM 5-100 mg/5 mL liquid 10 ml PO Q8H PRN (Reason: cough) Qty: 118 RF: 0 Continued sumatriptan 20 mg/actuation spray,non-aerosol 20 mg intranasal Q2H PRN (Reason: migraine headache) Qty: 12 RF: 3 eletriptan 40 mg tablet 40 mg PO DIRECTED PRN (Reason: migraine headache) 90 Days Qty: 27 RF: 1 carisoprodol 350 mg tablet 350 - 700 mg PO DAILY PRN (Reason: muscle pain) 90 Days Qty: 180 RF: 0 estradiol [Vivelle-Dot] 0.0375 mg/24 hr patch semiweekly 1 patch transdermal 2XWK Qty: 24 RF: 3 progesterone micronized [Prometrium] 100 mg capsule 100 mg PO DAILY 90 Days Qty: 90 RF: 3 sertraline 100 mg tablet 100 mg PO DAILY RF: 0 metoprolol succinate 25 mg tablet extended release 24 hr 25 mg PO DAILY RF: 0 mexiletine 250 mg capsule 250 mg PO BID RF: 0 nabumetone 500 mg tablet 500 mg PO BID PRN (Reason: Pain) RF: 0 metoclopramide HCl 10 mg tablet 10 mg PO Q12H PRN (Reason: Migraine Headache) RF: 0 Discharge Orders: Discharge Order (Routine); Ordered 04/18/22 Ordered By: Lewis Schmitz/Other Patient Handouts: 2019 Novel Coronavirus, COVID-19 Home Care Admission Data Admit Date/Time: 04/14/22 07:07 Attending Provider: Lewis Baker Admit Provider: Gerald Haji Primary Care Provider: Abiodun Rivera Other Providers: Gerald Haji Other Interventions: Discharge Summary Assessment (RN) Last Done: 04/18/22 12:39
== END 2022-04-18 14:16 | disposition home or self-care (01) | DRG 177 ==
LOC: ED 01:06 → SUATTDRO 07:07 → EDINP 07:07 → 2S 10:21